=== PATIENT | female | born 1985 | race American Indian/Alaskan Native ===

== ENCOUNTER 2021-11-10 09:54 | Day surgery (SDC) | payer MEDICAID ==
[~2021-11-10 09:54] MED LIST: ACETAMINOPHEN 500 MG TAB PO SCH; LACTATED RINGERS 1,000 ML IV SCH; MIDAZOLAM 2 MG/2 ML INJ IV NR; SCOPOLAMINE TRANSDERMAL PATCH 72 HR TD NR
--- NOTE | 2021-11-10 10:25 | Anesthesia Consultation ---
Anesthesia Consult and Med Hx Date of service: 11/10/21 - Airway Anesthetic Teeth Evaluation: Good ROM Head & Neck: Adequate Mental/Hyoid Distance: Adequate Mallampati Class: Class III Intubation Access Assessment: Possibly Difficult - Pre-Operative Health Status ASA Pre-Surgery Classification: ASA2 Proposed Anesthetic Plan: General - Pulmonary Hx Smoking: Yes (THC only) Hx Respiratory Symptoms: No - Cardiovascular System Hx Hypertension: No - Central Nervous System CVA: No - Endocrine Hx Renal Disease: No Hx Liver Disease: No Hx Insulin Dependent Diabetes: No Hx Non-Insulin Dependent Diabetes: No Hx Thyroid Disease: No - Other Systems Hx Obesity: No - Additional Comments Anesthesia Medical History Comments: No hx anesthetic complications.
--- NOTE | 2021-11-10 10:25 | Anesthesia Day of Surgery ---
Anesthesia Day of Surgery - Day of Surgery Patient Examined: Yes Patient H&P Reviewed: Yes Patient is NPO: Yes
[2021-11-10] MEDS ORDERED: oxyCODONE /ACETAMINOPHEN 5-325MG TAB PO PRN (10:30)
[2021-11-10] MEDS ORDERED: ONDANSETRON 4 MG/2 ML INJ IV PRN (11:00)
[2021-11-10] MEDS ORDERED: HYDROmorphone 1 MG/1 ML INJ IV PRN (11:00)
[2021-11-10] MEDS ORDERED: ceFAZolin/Water 2 GM/20 ML 2 GM/20 ML SYRINGE IV ONE (12:33)
[2021-11-10] MEDS ORDERED: LIDOCAINE MPF (2%) 20 MG/1 ML VIAL 5 ML ONE (12:40)
[2021-11-10] MEDS ORDERED: fentaNYL 100 MCG/2 ML INJ ONE (12:41)
[2021-11-10] MEDS ORDERED: propofoL 200 MG/20 ML VIAL IV ONE (12:41)
[2021-11-10] MEDS ORDERED: ceFAZolin/STERILE WATER 2 GM/20 ML SYRINGE IV NR (13:00)
--- NOTE | 2021-11-10 13:11 | History and Physical Report ---
History of Present Illness Date of examination: 11/10/21 Date of admission: 11/10/21 Chief complaint: Vulva lesions History of present illness: Lesions presented 5 yrs ago. minimal aggression in growth. 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 Salpingectomy of unknown side for ectopic preg.) TRACK OILER History: denies: abnormal PAP smear Family/Genetic History: none Social history: no significant social history Medications and Allergies Allergies Allergy/AdvReac Type Severity Reaction Status Date / Time tomato Allergy throat Verified 11/08/21 16:18 itching Home Medications Medication Instructions Recorded Confirmed Last Taken Type No Known Home Medications [No 11/08/21 11/08/21 Unknown History Reported Home Medications] Active Meds: Active Medications Acetaminophen (Acetaminophen 500 Mg Tab) 1,000 mg PO PREOP CHRISTIANA Stop: 11/10/21 18:00 Last Admin: 11/10/21 10:55 Dose: 1,000 mg Cefazolin Sodium (Cefazolin/Sterile Water 2 Gm/20 Ml Syringe) 2 gm IV PREOP NR Stop: 11/10/21 23:59 Hydromorphone HCl (Hydromorphone 1 Mg/1 Ml Inj) 0.5 mg IV Q10MIN PRN PRN Reason: Pain , Severe (7-10) Stop: 11/10/21 18:00 Lactated Ringer's (Lactated Ringers) 1,000 mls @ 100 mls/hr IV DIRECT CHRITSIANA Stop: 11/10/21 23:59 Last Admin: 11/10/21 10:40 Dose: 100 mls/hr Midazolam HCl (Midazolam 2 Mg/2 Ml Inj) 2 mg IV PREOP NR Stop: 11/10/21 23:01 Ondansetron HCl (Ondansetron 4 Mg/2 Ml Inj) 4 mg IV ONCE PRN PRN Reason: Nausea And Vomiting Stop: 11/10/21 17:00 Oxycodone/Acetaminophen (Oxycodone /Acetaminophen 5-325mg Tab) 1 tab PO ONCE PRN PRN Reason: Pain, Moderate (4-6) Stop: 11/10/21 17:00 Scopolamine (Scopolamine Transdermal Patch 72 Hr) 1 each TD PREOP NR Stop: 11/10/21 23:01 Last Admin: 11/10/21 10:55 Dose: 1 each Review of Systems All systems: negative Genitourinary: other (condylomata) Rectal Exam: deferred - Vital Signs Vital signs: Vital Signs Temp Pulse Resp BP Pulse Ox 98.2 F 70 16 115/79 100 11/09/21 10:40 11/09/21 10:40 11/09/21 10:40 11/09/21 10:40 11/09/21 10:40 Temp Pulse Resp BP Pulse Ox 99.3 F 87 18 117/55 100 11/10/21 10:44 11/10/21 10:44 11/10/21 10:55 11/10/21 10:44 11/10/21 10:44 - Physical Exam Breasts: Positive: deferred Cardiovascular: Normal S1, Normal S2 Lungs: Positive: Normal air movement Abdomen: Positive: normal appearance, soft, normal bowel sounds Genitourinary (Female): Positive: perineal/vulvar lesions Vulva: right: condyloma Vagina: Positive: normal moisture. Negative: discharge Anus/Rectum: Positive: normal perianal skin Extremities: Positive: normal Deep Tendon Reflex Grade: Normal +2 Results All other labs normal. Assessment and Plan - Patient Problems (1) Condyloma acuminatum of vulva Current Visit: Yes Status: Acute Plan to address problem: partial vulvectomy, excision of other lesions.
[2021-11-10] MEDS ORDERED: BUPIVACAINE/PF (0.5%) 5 MG/1 ML 10 ML VIAL INFILTRATI ONE ×4 (13:49→14:03)
[2021-11-10] MEDS ORDERED: LIDOCAINE JELLY (2%) 5 ML TOPICAL ONE (13:49)
[2021-11-10] MEDS ORDERED: ONDANSETRON 4 MG/2 ML INJ ONE (13:50)
[2021-11-10] MEDS ORDERED: dexAMETHasone 20 MG/5 ML VIAL ONE (13:50)
[2021-11-10] MEDS ORDERED: KETOROLAC 30 MG/1 ML INJ ONE (13:50)
[2021-11-10] MEDS ORDERED: SODIUM CHLORIDE 0.9% IRR 1,500 ML BOTTLE IR ONE (13:57)
[2021-11-10] MEDS ORDERED: LIDOCAINE MPF (2%) 20 MG/1 ML VIAL 5 ML INFILTRATI ONE (13:57)
--- NOTE | 2021-11-10 14:28 | Operative Report ---
Operative Report Operative Report: Date of surgery: 12/08/2021 Preoperative diagnosis: Right vulvar lesion, condyloma. Postoperative diagnosis: The same. Procedure: Partial vulvectomy. Surgeon: Tam Rome MD Anesthesiologist: Ana Gerber MD Anesthesia: GA EBL: 10 cc. Complications: None Findings: On the bridge of the right labia majora, where an out cropping of condylomatous growth extending from the anterior fourchette to the inferior third of the same labium. No other external lesions were found on the external genitalia. The marita-anal skin was grossly normal. Procedure in details: The patient was placed in the lithotomy position after she was put to sleep. The external genitals were shaved. The vulva and vagina were prepped. The patient was draped. A timeout was then done. Dr. Gerber gave the go ahead for the case to proceed. The enclosing skin over the ridge of the right labium majora was put on the stretch and the condylomatous strip of skin was excised with a surgical scalpel. Hemostasis was achieved with 3 layered closure with 4-0 Vicryl. The skin was closed subcuticularly with 4-0 Vicryl. Hemostasis was satisfactory. The estimated blood loss was 10 cc. There were no complications. All sponges and instruments were accounted for. The specimens were packaged for histopathological examination. The patient was safely transferred to the recovery room.
--- NOTE | 2021-11-10 15:08 | Post Anesthesia Evaluation ---
- Post Anesthesia Evaluation Patient Participated: Yes Airway Patent: Yes Stable Respiratory Function: Yes Nausea/Vomiting: No Temp > 96.8F: Yes Pain Manageable: Yes Adequeate Hydration: Yes Anesthesia Complications: No
[2021-11-10 15:35] VITALS: BP 130/81
== END 2021-11-10 15:45 | disposition home or self-care (01) ==
LOC: OR 09:54
PROVIDERS: ATTEND Obstetrics & Gynecology
DX: N90.89 Other specified noninflammatory disorders of vulva and perineum (principal); G43.909 Migraine, unspecified, not intractable, without status migrainosus; Z20.822 Contact with and (suspected) exposure to COVID-19; Z79.899 Other long term (current) drug therapy; Z88.8 Allergy status to other drugs, medicaments and biological substances; Z98.891 History of uterine scar from previous surgery; Z87.442 Personal history of urinary calculi; Z72.89 Other problems related to lifestyle; Z98.890 Other specified postprocedural states
CPT/HCPCS: 56620; 81025; 88305; J0690; J1100; J1885; J2405; J2704; J3010; J3490; J7120; U0003

== ENCOUNTER 2021-12-12 03:53 | Emergency (ER) | payer MEDICAID ==
[2021-12-12] MEDS ORDERED: ONDANSETRON 4 MG/2 ML INJ IV ONE (06:02)
[2021-12-12] MEDS ORDERED: SODIUM CHLORIDE 0.9% 1000 ML 1,000 ML IV ONE (06:02)
[2021-12-12] MEDS ORDERED: MORPHINE 4 MG/1 ML INJ IV ONE (06:18)
[2021-12-12] MEDS ORDERED: PANTOPRAZOLE 40 MG INJ IV ONE (06:18)
[2021-12-12 06:21] LABS: Hematocrit 40.3 % (30.3-42.9); Hemoglobin 13.6 gm/dl (10.1-14.3); Mean Corpuscular HGB Conc 34 % (30-34); Mean Corpuscular Volume 73 fl (79-97); Platelet Count 363 K/mm3 (140-440); Red Blood Count 5.49 M/mm3 (3.65-5.03); Red Cell Distribution Width 14.6 % (13.2-15.2)
--- NOTE | 2021-12-12 06:23 | Emergency Department Report ---
ED Abdominal Pain HPI - General Chief Complaint: Abdominal Pain Stated Complaint: N/V/D Time Seen by Provider: 12/12/21 06:14 Source: patient, EMS Mode of arrival: Stretcher Limitations: No Limitations - History of Present Illness Initial Comments: Patient is 36 years old female with frequent history of gastroenteritis according to the patient report. No significant past medical history. Patient presented to the ER complaining of abdominal pain, diffuse crampy in nature with no radiation. Patient stated that pain associated with nausea, vomiting and watery diarrhea. Patient denied any fever or chills. No chest pain or shortness of breath. MD Complaint: abdominal pain -: Last night Location: diffuse Migration to: no migration Severity scale (0 -10): 7 Quality: cramping Associated Symptoms: nausea, vomiting, diarrhea. denies: chills, constipation, dysuria, hematemesis, hematochezia, melena, hematuria - Related Data Previous Rx's Medication Instructions Recorded Last Taken Type HYDROcodone/APAP 5-325 [[place] 2 each PO Q6HR PRN #30 tablet 11/10/21 Unknown Rx 5/325] Lidocaine [Lidocaine CREAM] 30 gm TP Q6HR #1 cream 11/10/21 Unknown Rx Dicyclomine [Bentyl] 20 mg PO QID #20 tablet 12/12/21 Unknown Rx Ondansetron [Zofran Odt] 4 mg PO Q8HR PRN #14 tab.rapdis 12/12/21 Unknown Rx Allergies Allergy/AdvReac Type Severity Reaction Status Date / Time tomato Allergy throat Verified 11/08/21 16:18 itching ED Review of Systems ROS: Stated complaint: N/V/D Other details as noted in HPI Comment: All other systems reviewed and negative Constitutional: denies: chills, fever Respiratory: denies: cough, shortness of breath, SOB with exertion, SOB at rest Cardiovascular: denies: chest pain, palpitations Gastrointestinal: abdominal pain, nausea, vomiting, diarrhea. denies: hematemesis, melena, hematochezia Musculoskeletal: denies: back pain Neurological: denies: headache, weakness, numbness, paresthesias, confusion, abnormal gait ED Past Medical Hx - Past Medical History Previous Medical History?: Yes Hx Hypertension: No Hx Liver Disease: No Hx Renal Disease: No Hx Headaches / Migraines: Yes (Migraines) Hx Kidney Stones: Yes Additional medical history: Gastroenteritis - Surgical History Past Surgical History?: No - Social History Smoking Status: Never Smoker Substance Use Type: None - Medications Home Medications: Home Medications Medication Instructions Recorded Confirmed Last Taken Type HYDROcodone/APAP 5-325 [[place] 2 each PO Q6HR PRN #30 tablet 11/10/21 Unknown Rx 5/325] Lidocaine [Lidocaine CREAM] 30 gm TP Q6HR #1 cream 11/10/21 Unknown Rx Dicyclomine [Bentyl] 20 mg PO QID #20 tablet 12/12/21 Unknown Rx Ondansetron [Zofran Odt] 4 mg PO Q8HR PRN #14 tab.rapdis 12/12/21 Unknown Rx ED Physical Exam - General Limitations: No Limitations General appearance: alert, in distress (due to pain) - Eye Eye exam: Present: normal appearance - ENT ENT exam: Present: mucous membranes dry - Neck Neck exam: Present: normal inspection, full ROM. Absent: tenderness, meningismus - Respiratory Respiratory exam: Present: normal lung sounds bilaterally - Cardiovascular Cardiovascular Exam: Present: regular rate, normal rhythm, normal heart sounds - GI/Abdominal GI/Abdominal exam: Present: soft, tenderness, normal bowel sounds. Absent: distended, guarding, rebound, rigid, organomegaly, mass, bruit, pulsatile mass, hernia - Extremities Exam Extremities exam: Present: normal inspection, full ROM, normal capillary refill. Absent: tenderness - Back Exam Back exam: Present: normal inspection, full ROM. Absent: CVA tenderness (R), CVA tenderness (L) - Neurological Exam Neurological exam: Present: alert, oriented X3, CN II-XII intact, normal gait, reflexes normal. Absent: motor sensory deficit - Psychiatric Psychiatric exam: Present: normal mood - Skin Skin exam: Present: warm, dry, intact ED Course Vital Signs 12/12/21 12/12/21 05:46 06:45 Temperature 98 F Pulse Rate 85 Respiratory 20 Rate Blood Pressure 180/108 O2 Sat by Pulse 98 Oximetry ED Medical Decision Making - Lab Data Result diagrams: 12/12/21 06:05 12/12/21 06:05 - Radiology Data Radiology results: report reviewed - Medical Decision Making Patient is 36 years old female with frequent history of gastroenteritis according to the patient report. No significant past medical history. Patient presented to the ER complaining of abdominal pain, diffuse crampy in nature with no radiation. Patient stated that pain associated with nausea, vomiting and watery diarrhea. Patient denied any fever or chills. No chest pain or shortness of breath. Patient remained stable in the ER with a stable vital sign. Labs reviewed and showed leukocytosis of 18,000. Patient received Zosyn. Patient also received morphine, Zofran, Reglan and Protonix. CT abdomen and pelvis showed colitis. Patient stated that she is feeling much better now. Patient given prescription for Flagyl, ciprofloxacin, Zofran and Bentyl and advised to follow-up with her primary doctor in the next 2 to 3 days and to return to the ER if she develop any new symptoms. Critical care attestation.: If time is entered above; I have spent that time in minutes in the direct care of this critically ill patient, excluding procedure time. ED Disposition Clinical Impression: Acute abdominal pain, Acute colitis Disposition: HOME / SELF CARE / HOMELESS Is pt being admited?: No Condition: Stable Instructions: Abdominal Pain, Adult, Colitis, Abdominal Pain (ED) Prescriptions: Dicyclomine [Bentyl] 20 mg PO QID #20 tablet Ondansetron [Zofran Odt] 4 mg PO Q8HR PRN #14 tab.rapdis PRN Reason: Nausea And Vomiting Referrals: CRAIG SALAZAR MD [Primary Care Provider] - 3-5 Days
[2021-12-12 06:43] LABS: Alanine Aminotransferase 24 units/L (7-56); Albumin 5.4 g/dL (3.9-5); BUN/Creatinine Ratio 14; Blood Urea Nitrogen 11 mg/dL (7-17); Calcium 10.9 mg/dL (8.4-10.2); Hemolysis Index 2
[2021-12-12 07:26] LABS: Basophils # (Auto) 0.1 K/mm3 (0.0-0.1); Basophils % (Auto) 0.6 % (0.0-1.8); Eosinophils % (Auto) 0.3 % (0.0-4.3); Lymphocytes # (Auto) 1.1 K/mm3 (1.2-5.4); Monocytes # (Auto) 1.5 K/mm3 (0.0-0.8); Monocytes % (Auto) 8.5 % (0.0-7.3)
[2021-12-12] MEDS ORDERED: PIPERACILLIN/TAZOBACTAM 3.375 3.375 GM/50 ML BAG IV ONE (07:31)
[2021-12-12] MEDS ORDERED: METOCLOPRAMIDE 10 MG/2 ML INJ IV ONE (07:44)
--- NOTE | 2021-12-12 08:31 | Cat Scan Report ---
CT ABDOMEN AND PELVIS WITH CONTRAST HISTORY: abdominal pain COMPARISON: None. TECHNIQUE: Axial CT images were obtained through the abdomen and pelvis after 90 cc of Omnipaque 300 IV contrast. Sagittal and coronal reformatted images. All CT scans at this location are performed usi ng CT dose reduction for ALARA by means of automated exposure control. FINDINGS: CT ABDOMEN: Lung Bases: Clear. Liver: The liver is mildly enlarged. No parenchymal disease or focal mass is appreciated. Biliary: Mild intrahepatic biliary dilatation is suspected. Mildly dilated bowel ducts are identified in both hepatic lobes and have somewhat of a beaded appearance. The gallbladder is unremarkable with no obvious cholelithiasis. The CBD measures 5.3 mm. No obvious obstructing lesion in the common bile duct. Spleen: No significant abnormality. Unenlarged. Pancreas: No significant abnormality. Adrenals: No significant abnormality. Kidneys: There are numerous punctate renal calyceal stones throughout both kidneys. No ureteral stone s or hydronephrosis is appreciated. There are a few scattered renal cysts measuring up to 1 cm. No re nal mass. Lymphatics: No lymphadenopathy. Vasculature: No significant abnormality. Bowel/Peritoneum: The bowel loops are nondilated. There is suggestion of mild circumferential thicken ing of the right hemicolon which could represent a nonspecific colitis. No obvious mass or focal infl ammation. Normal appendix. CT PELVIS: : The uterus, adnexa and bladder are unremarkable. Osseous Structures: No significant abnormality. Additional Findings: Rectus muscle diastases is identified near the level of the umbilicus with sepa ration measuring up to 3.6 cm. IMPRESSION: There is mild intrahepatic biliary dilatation without evidence for obstructing lesion/cholelithiasis. Correlate for biliary symptoms. Mild hepatomegaly. Multiple bilateral renal calyceal stones. No hydronephrosis. Scattered simple renal cysts. Mild circumferential thickening of the right hemicolon is suggested which could represent a nonspecif ic colitis. Signer Name: Clayton Becker Jr, MD Signed: 12/12/2021 8:27 AM Workstation Name: [id number]
[2021-12-12 08:46] LABS: Bilirubin,Urine NEG (Negative); Blood,Urine NEG (Negative); Color,Urine Yellow (Yellow); Protein,Urine <15 mg/dL mg/dL (Negative); Urobilinogen,Urine < 2.0 mg/dL (<2.0)
[2021-12-12 08:53] LABS: RBC,Urine < 1.0 /HPF (0.0-6.0); WBC,Urine < 1.0 /HPF (0.0-6.0)
[2021-12-12 11:35] VITALS: BP 146/72
== END 2021-12-12 11:41 | disposition home or self-care (01) ==
LOC: ED 03:53
DX: K52.9 Noninfective gastroenteritis and colitis, unspecified (principal); R10.9 Unspecified abdominal pain; G43.909 Migraine, unspecified, not intractable, without status migrainosus; N20.0 Calculus of kidney; Z91.02 Food additives allergy status
CPT/HCPCS: 36415; 74177; 80053; 81001; 83690; 84703; 85007; 85025; 87040; 96365; 96375; 99284; C9113; J2270; J2405; J2543; J2765; J7030; Q9967; Q0162